=== PATIENT | male | born 1960 | race Caucasian/White ===

== ENCOUNTER 2016-12-24 08:20 | Inpatient (IN) | payer BC, OTHER ==
[~2016-12-24] VITALS: Ht 193 cm; Wt 86.2 kg
[~2016-12-24 08:20] MED LIST: AMIO200T6 PO; Acetaminophen PO; PRAS50CA PO; RIVA10TA PO; THYR60TA2 PO
[2016-12-24] MEDS ORDERED: PROP150T9 PO (08:33)
[2016-12-24] MEDS ORDERED: DILTIAZEM HCL 25 MG IV IV ONE ×2 (08:45→09:15)
[2016-12-24 08:49] LABS: BASOPHILS # (AUTO) 0.1 K/uL (0.0-0.2); BASOPHILS % (AUTO) 1.3 % (0.0-2.0); EOSINOPHILS # (AUTO) 0.1 K/uL (0.0-0.7); EOSINOPHILS % (AUTO) 1.2 % (0.0-7.0); HEMATOCRIT 46.8 % (40.0-50.0); HEMOGLOBIN 15.3 g/dL (14.0-18.0); LYMPHOCYTES # (AUTO) 1.4 K/uL (0.8-4.8); LYMPHOCYTES % (AUTO) 23.9 % (20.5-51.5); MEAN CORPUSCULAR HEMOGLOBIN 28.3 uug (27.0-31.0); MEAN CORPUSCULAR HGB CONC 33 g/dL (32.0-37.0); MEAN CORPUSCULAR VOLUME 86.6 fL (82.0-92.0); MONOCYTES # (AUTO) 0.5 K/uL (0.1-1.30); MONOCYTES % (AUTO) 8.3 % (0.0-11.0); NEUTROPHILS # (AUTO) 3.6 K/uL (1.8-8.9); NEUTROPHILS % (AUTO) 65.3 % (38.5-71.5); PLATELET COUNT (AUTO) 218 K/uL (150-450); RED CELL DISTRIBUTION WIDTH 12.6 % (11.5-14.5); WHITE BLOOD COUNT (AUTO) 5.7 K/uL (4.0-11.2)
[2016-12-24] MEDS ORDERED: DILTIAZEM HCL 25 MG IV ONE ×2 (08:50→09:26)
[2016-12-24 08:52] LABS: CALCIUM 8.9 mg/dL (8.5-10.1)
[2016-12-24 08:58] LABS: ALBUMIN 3.8 g/dL (3.4-5.0); BILIRUBIN,TOTAL 1.5 mg/dL (0.2-1.0)
--- NOTE | 2016-12-24 08:59 | NUR ---
EKG/SALINE LOCK/CARDIZEM/CXR/URINE/LABS DONE EARLIER. MONITOR SHOWS A-FIB AT 117, TG6=161% ON ROOM AIR. PT DOES NOT C/O CP OR SOB.
[2016-12-24 09:16] LABS: *BILIRUBIN,URIN NEGATIVE (NEGATIVE); *BLOOD, URINE NEGATIVE (NEGATIVE); *CLARITY,URINE CLEAR (CLEAR); *COLOR,URINE YELLOW (YELLOW); *KETONES,URINE NEGATIVE (NEGATIVE); *PROTEIN,URINE NEGATIVE (NEGATIVE); *UROBILINOGEN,URINE 0.2 E.U./dl (NORMAL); LEUKOCYTE ESTERASE ,URINE NEGATIVE (NEGATIVE); NITRITE, URINE NEGATIVE (NEGATIVE); UGLUCOSE NEGATIVE (NEGATIVE)
[2016-12-24] MEDS ORDERED: ENOXAPARIN SODIUM 80 MG/0.8 ML DISP.SYRIN SQ ONE (09:28)
[2016-12-24 09:35] LABS: RBC,URINE 0-3 /HPF (0-3); WBC,URINE 0-3 /HPF (0-3)
[2016-12-24 09:36] LABS: BACTERIA,URINE FEW /HPF (NONE SEEN); MUCUS,URINE FEW /LPF (0-FEW); SQUAMOUS EPITHELIAL CELL,UR FEW /HPF (NONE SEEN)
[2016-12-24] MEDS ORDERED: ONDANSETRON 4 MG/2 ML VIAL IV PRN (09:45)
[2016-12-24] MEDS ORDERED: ACETAMINOPHEN 325 MG TABLET PO PRN (09:45)
[2016-12-24] MEDS ORDERED: MORPHINE SULFATE 2 MG/1 ML DISP.SYRIN IV PRN (09:45)
[2016-12-24] MEDS ORDERED: PANTOPRAZOLE SODIUM 40 MG TABLET.DR PO SCH (09:45)
[2016-12-24 09:49] LABS: THYROID STIMULATING HORMONE 4.175 mIU/mL (0.358-3.740)
[2016-12-24] MEDS ORDERED: IV NORMAL SALINE 500 ML IV ONE ×2 (10:00→13:00)
[2016-12-24] MEDS ORDERED: METOPROLOL TARTRATE 5 MG/5 ML VIAL IVP ONE ×2 (10:00→10:08)
--- NOTE | 2016-12-24 10:08 | NUR ---
PHARMACY NOTE: LOPRESSOR NOT ADMINISTERED, BP LOW AT 89/67, ALSO PT HR=78, NSR , A-FIB RESOLVED, DR HAMILTON AWARE.
--- NOTE | 2016-12-24 10:28 | NUR ---
SBAR REPORT TO DEANNA CERON, ALL MD ORDERS COMPLETED, PT THEN TRANSPORTED VIA GUERNEY/MONITOR TO 222. NO SKIN BREAKDOWN NOTED, ADMIT ORDER WRITTEN, BELONGINGS LIST DONE.
--- NOTE | 2016-12-24 10:40 | NUR ---
NEW ADMISSION ARRIVED TO ROOM 222. PATIENT ALERT, AWAKE AND ORIENTED X4. DENIED PAIN AT THIS TIME.
[2016-12-24 11:08] VITALS: BP 92/71
--- NOTE | 2016-12-24 12:07 | NUR ---
ADMISSION ASSESSMENT DONE. PATIENT SEEN BY RENAE ELIZABETH. PATIENT SR ON TELEMONITOR.
[2016-12-24] MEDS ORDERED: IV NORMAL SALINE 500 ML BAG IV ONE (12:45)
[2016-12-24 13:19] LABS: CREATINE KINASE MB 0.9 ng/mL (0-5.0)
[2016-12-24] MEDS ORDERED: PROPAFENONE HCL 150 MG TABLET PO SCH (14:00)
[2016-12-24 15:50] VITALS: BP 99/67
[2016-12-24] MEDS ORDERED: PROP300T2 PO (18:08)
[2016-12-24] MEDS ORDERED: ASPI-618 PO (18:08)
[2016-12-24 18:11] VITALS: BP 100/63
--- NOTE | 2016-12-24 18:47 | NUR ---
PATIENT SEEN BY DR. CASE. PATIENT DISCHARGING HOME IN A STABLE CONDITION. DISCHARGE INSTRUCTIONS PROVIDED. LIST OF BELONGINGS SIGNED AND ALL WAS TAKEN. IV REMOVED, PRESSURE APPLIED AND HEMOSTASIS ACHIEVED. LEAVING VIA PRIVATE CAR.
[2016-12-24] MEDS ORDERED: ENOXAPARIN SODIUM 100 MG/ML DISP.SYRIN SQ SCH (21:00)
[2016-12-25] MEDS ORDERED: THYROID 60 MG TABLET PO SCH (07:00)
[2016-12-25] MEDS ORDERED: ASPIRIN EC 81 MG TABLET.DR PO SCH (09:00)
== END 2016-12-24 19:00 | disposition home or self-care (01) | DRG 310 ==
LOC: ER 08:20 → TELE 10:17 → MED 18:02
PROVIDERS: ADMIT Internal Medicine; ATTEND Internal Medicine
DX: I48.0 Paroxysmal atrial fibrillation (principal); E03.9 Hypothyroidism, unspecified; E80.6 Other disorders of bilirubin metabolism; I95.9 Hypotension, unspecified; R00.1 Bradycardia, unspecified
CPT/HCPCS: 36415; 70030-TC; 71010; 84443; 85025; 85610; 87086; 93005; 93307; A4663; J1650; J3490; J7040

== ENCOUNTER 2017-01-22 00:10 | Emergency (ER) | payer BC ==
[~2017-01-22] VITALS: Ht 193 cm; Wt 83.9 kg
[~2017-01-22 00:10] MED LIST changes: -AMIO200T6 PO; +ASPI-618 PO; -Acetaminophen PO; -PRAS50CA PO; +PROP300T2 PO; -RIVA10TA PO
[2017-01-22 02:27] LABS: BASOPHILS # (AUTO) 0.1 K/uL (0.0-8.0); BASOPHILS % (AUTO) 0.9 % (0.0-2.0); EOSINOPHILS # (AUTO) 0.3 K/uL (0.0-0.7); EOSINOPHILS % (AUTO) 3.5 % (0.0-7.0); HEMOGLOBIN 14.9 g/dL (12.5-16.3); LYMPHOCYTES # (AUTO) 2.2 K/uL (20.0-40.0); MEAN CORPUSCULAR HEMOGLOBIN 29.2 uug (23.8-33.4); MEAN CORPUSCULAR HGB CONC 34 g/dL (32.5-36.3); MEAN CORPUSCULAR VOLUME 86.1 fL (73.0-96.2); MONOCYTES # (AUTO) 0.6 K/uL (2.0-10.0); NEUTROPHILS # (AUTO) 4.7 K/uL (1.8-8.9); NEUTROPHILS % (AUTO) 59.6 % (38.5-71.5); PLATELET COUNT (AUTO) 230 K/uL (152-348); RED BLOOD CELL COUNT(AUTO) 5.11 MIL/uL (4.06-5.63); RED CELL DISTRIBUTION WIDTH 12.7 % (12.1-16.2); WHITE BLOOD COUNT (AUTO) 7.9 K/uL (3.6-10.2)
[2017-01-22 02:33] LABS: CALCIUM 8.9 mg/dL (8.5-10.1); CREATININE 1.1 mg/dL (0.6-1.3); POTASSIUM 3.9 mmol/L (3.5-5.1)
[2017-01-22 02:39] LABS: ALBUMIN 4.2 g/dL (3.4-5.0); BILIRUBIN,DIRECT 0.2 mg/dL (0.0-0.2); BILIRUBIN,TOTAL 1.1 mg/dL (0.2-1.0); TOTAL PROTEIN, SERUM 7.4 g/dL (6.4-8.2)
--- NOTE | 2017-01-22 03:13 | NUR ---
Patient discharged to home in stable conditon. Written and verbal after care instructions given. Patient verbalizes understanding of instructions.
== END 2017-01-22 03:14 | disposition home or self-care (01) ==
LOC: ER 00:17
DX: R00.2 Palpitations (principal); E03.9 Hypothyroidism, unspecified; I48.0 Paroxysmal atrial fibrillation; Z79.82 Long term (current) use of aspirin
CPT/HCPCS: 36415; 70030-TC; 85025; 85730; 93005; A4663

== ENCOUNTER 2017-07-03 02:13 | Emergency (ER) | payer BC ==
[~2017-07-03] VITALS: Ht 193 cm; Wt 83.9 kg
--- NOTE | 2017-07-03 02:43 | NUR ---
Pt is received alert, responsive as he came in c/o palpitations and has a history off A.FB. His care continue with MD at bedside as EKG is showing now Sinus Rythm . His care continue while monitor and awaits orders.
[2017-07-03 03:13] VITALS: BP 123/76
--- NOTE | 2017-07-03 03:13 | NUR ---
Pt is been discahrge to home with discharge instructions given and he remain stable with no s/s off distress or c/o pain and Sinus Rythm on the Tele monitor.
== END 2017-07-03 03:10 | disposition home or self-care (01) ==
LOC: ER 02:15
DX: I48.91 Unspecified atrial fibrillation (principal); E03.9 Hypothyroidism, unspecified
CPT/HCPCS: A4663